=== PATIENT | male | born 1975 | race Two or more races ===

== ENCOUNTER 2019-12-10 17:30 | Emergency (ER) | payer SELFPAY ==
[~2019-12-10] VITALS: Ht 167.6 cm; Wt 83.9 kg
[2019-12-10] MEDS ORDERED: IV NS 0.9% 1,000 ML BAG IV ONE (18:00)
[2019-12-10] MEDS ORDERED: LORAZEPAM INJ 2 MG/ML VIAL IV ONE (18:00)
[2019-12-10] MEDS ORDERED: ONDANSETRON HCL/PF 4 MG/2 ML VIAL IVP ONE (18:00)
--- NOTE | 2019-12-10 18:00 | NUR ---
patient came in to the er c/o anxiety attack x 2 days, 96% on room air, On PO ATB for flu x 1 week. On room air, breathing evenly and unlabored. connected to the monitor and pulse ox. kept comfortable, will continue to monitor accordingly.
[2019-12-10 18:10] LABS: BASOPHILS % (AUTO) 0.9 % (0.0-2.0); EOSINOPHILS % (AUTO) 0.1 % (0.0-6.0); HEMATOCRIT 51 % (39-51); HEMOGLOBIN 17.5 g/dL (13.5-17.5); LYMPHOCYTES # (AUTO) 1.4 /CMM (0.8-4.8); LYMPHOCYTES % (AUTO) 27.9 % (20.0-44.0); MEAN CORPUSCULAR HGB CONC 35 g/dl (31.0-36.0); MEAN CORPUSCULAR VOLUME 92 fL (80-96); MONOCYTES # (AUTO) 0.7 /CMM (0.1-1.30); MONOCYTES % (AUTO) 14.7 % (2.0-12.0); NEUTROPHILS # (AUTO) 2.8 /CMM (1.8-8.9); NEUTROPHILS % (AUTO) 56.4 % (43.0-81.0); PLATELET COUNT (AUTO) 186 /CMM (150-450); RED BLOOD CELL COUNT(AUTO) 5.51 MIL/uL (4.5-6.0); WHITE BLOOD COUNT (AUTO) 4.9 K/uL (4.3-11.0)
[2019-12-10] MEDS ORDERED: LORAZEPAM INJ 2 MG/ML VIAL ONE (18:10)
[2019-12-10] MEDS ORDERED: ONDANSETRON HCL/PF 4 MG/2 ML VIAL ONE (18:10)
[2019-12-10 18:17] LABS: CALCIUM, SERUM 9.1 mg/dL (8.5-10.1); CARBON DIOXIDE 28 mmol/L (21-32); CHLORIDE 94 mmol/L (98-107); CREATININE 0.9 mg/dL (0.6-1.3); GLUCOSE 102 mg/dL (74-106); POTASSIUM 3.6 mmol/L (3.5-5.1); SODIUM SERUM 134 mmol/L (136-145); UREA NITROGEN, BLOOD 12 mg/dL (7-18)
[2019-12-10 18:22] LABS: ALANINE AMINOTRANSFERASE 55 U/L (12-78); ALBUMIN 3.6 g/dL (3.4-5.0); ALKALINE PHOSPHATASE 62 U/L (46-116); ASPARTATE AMINOTRANSFERASE 59 U/L (15-37); BILIRUBIN,DIRECT 0.2 mg/dL (0.0-0.2); BILIRUBIN,TOTAL 0.5 mg/dL (0.2-1.0); TOTAL PROTEIN, SERUM 8.6 g/dL (6.4-8.2)
--- NOTE | 2019-12-10 18:30 | NUR ---
matthew at bedside for x-ray
--- NOTE | 2019-12-10 18:40 | NUR ---
appliance repair technician at bedside
--- NOTE | 2019-12-10 19:06 | NUR ---
report given to Kenyon BANERJEE for galina.
--- NOTE | 2019-12-10 19:12 | NUR ---
seen by JEREMIAH Cabrera
[2019-12-10 19:31] VITALS: BP 123/75
--- NOTE | 2019-12-10 19:31 | NUR ---
IV removed. Catheter intact and site benign. Pressure and 4x4 applied to site. No bleeding noted. Patient discharged to home in stable condition. Written and verbal after care instructions given. Patient verbalizes understanding of instruction. Patient is ambulatory with a steady gait.
== END 2019-12-10 19:37 | disposition home or self-care (01) ==
LOC: ER 17:32
DX: F41.9 Anxiety disorder, unspecified (principal); J11.1 Influenza due to unidentified influenza virus with other respiratory manifestations; R51 Headache; R19.7 Diarrhea, unspecified
CPT/HCPCS: 36415; 71045; 80048; 80076; 84484; 85025; 85730; 93005; 93971; 96361; 96374; 96375; 99284; J2060; J2405; J7030